=== PATIENT | female | born 1940 | race Caucasian/White ===

== ENCOUNTER 2016-04-23 08:21 | Emergency (ER) | payer SELFPAY ==
[~2016-04-23] VITALS: Ht 165.1 cm; Wt 65.8 kg
[~2016-04-23 08:21] MED LIST: ASPIR-LOW81 MG PO; ATENOLOL50 MG PO; ATORVASTATIN CA80 MG PO; BENTYL20 MG PO; CALCIUM + D SO1 EACH PO; CLOPIDOGREL75 MG PO; GLIPIZIDE XL5 MG PO; IMODIUM MS REL1 EACH PO; LEVOXYL50 MCG PO; LISINOPRIL5 MG PO; LITE COAT ASPI325 M1 PO; METFORMIN HCL500 MG PO; NITROSTAT0.4 MG SL; PROMETHAZINE HC25 M1 PO; VITAMIN E100 UNIT PO
[2016-04-23 09:23] LABS: EOSINOPHIL (%) 0.5 % (0-5); EOSINOPHIL COUNT 0.1 K/uL (0-0.3); HEMATOCRIT 38.2 % (36.0-46.0); IMMATURE GRANULOCYTE (%) 0.2 % (0.0-0.7); IMMATURE GRANULOCYTE COUNT 0.2 K/uL; LYMPHOCYTE COUNT 1.1 K/uL (1.0-2.8); MCH 30.7 PG (29.0-34.0); MCHC 34.3 G/DL (30.0-36.0); MCV 89.5 FL (83-99); MEAN PLAT.VOLUME 11.5 uM^3 (9.5-12.4); MONOCYTE (%) 5.8 % (3-12); MONOCYTE COUNT 0.5 K/uL (0-0.8); NEUTROPHIL (%) 81.7 % (45-76); NEUTROPHIL COUNT 7.5 K/uL (1.8-6.4); PLATELET COUNT 190 K/uL (156-360); RBC DIS.WIDTH-CV 13.1 % (11.8-14.6); RBC DIS.WIDTH-SD 41.9 % (39-53); RED BLOOD COUNT 4.27 M/uL (3.80-5.20); WHITE BLOOD COUNT 9.1 K/uL (4.1-10.2)
[2016-04-23 09:31] LABS: CHLORIDE 101 mEq/L (99-109); INTER. NORMALIZED RATIO 1.1; POTASSIUM 4.2 mEq/L (3.7-5.4); PROTHROMBIN TIME 10.8 (9.2-11.2); SODIUM 135 mEq/L (136-147)
[2016-04-23 09:32] LABS: GLUCOSE 350 mg/dL (70-99)
[2016-04-23 09:34] LABS: ANION GAP 12 MEQ/L (2-14)
[2016-04-23 09:36] LABS: GFR ESTIMATE (CALCULATED) 51 mL/min/
[2016-04-23 09:37] LABS: UREA NITROGEN (BUN) 17 mg/dL (9-23)
[2016-04-23 09:45] LABS: ADD MIUA? YES; BILIRUBIN NEGATIVE; BLOOD LARGE; GLUCOSE (STRIP) >1000; KETONES NEGATIVE; LEUKOCYTES MODERATE; NITRITE NEGATIVE; PROTEIN (STRIP) 100; SPECIFIC GRAVITY 1.018 (1.000-1.030); UROBILINOGEN 0.2 MG/DL (0.2-1.0)
[2016-04-23 09:46] LABS: COLOR RED ((YELLOW))
[2016-04-23 09:48] LABS: RED BLOOD CELLS TNTC /HPF (0-5); UCUL ADDED? YES
[2016-04-23] MEDS ORDERED: CIPRO500 MG PO (10:28)
[2016-04-23 10:51] VITALS: BP 146/72
== END 2016-04-23 11:06 | disposition home or self-care (01) ==
LOC: EME 08:21
PROVIDERS: Emergency Medicine
DX: N30.90 Cystitis, unspecified without hematuria (principal); E11.9 Type 2 diabetes mellitus without complications; I10 Essential (primary) hypertension; I25.2 Old myocardial infarction; K21.9 Gastro-esophageal reflux disease without esophagitis; E03.9 Hypothyroidism, unspecified
CPT/HCPCS: 74176; 80048; 81003; 85025; 85610; 87086; 99281; 99283